=== PATIENT | female | born 2000 | race Caucasian/White ===

== ENCOUNTER 2025-06-26 19:00 | Emergency (ER) | payer MEDICAID ==
[~2025-06-26 19:00] MED LIST: PREG75CA30 PO
== END 2025-06-26 20:26 | disposition left against medical advice (07) ==
LOC: ER 19:00
DX: H57.10 Ocular pain, unspecified eye (principal); Z53.21 Procedure and treatment not carried out due to patient leaving prior to being seen by health care provider